=== PATIENT | male | born 1995 | race Caucasian/White ===

== ENCOUNTER 2016-09-06 18:08 | Emergency (ER) | payer BC, OTHER ==
[~2016-09-06] VITALS: Ht 167.6 cm; Wt 82.2 kg
[2016-09-06 18:12] VITALS: BP 155/90; PULSE 90; TEMP 37.2; O2SAT 99; Ht 167.6 cm; Wt 82.2 kg
[2016-09-06] MEDS ORDERED: PROPARACAINE HCL 0.5% OP SOLN 15 ML BTL OP STA (18:44)
[2016-09-06] MEDS ORDERED: CLR10 PO (18:50)
[2016-09-06] MEDS ORDERED: DOXY100C76 PO (18:50)
[2016-09-06] MEDS ORDERED: CIPROFLOXACIN HCL 0.3% OP SOLN 2.5 ML BTL OP ONE (19:00)
--- NOTE | 2016-09-10 06:59 | EMERGENCY ROOM VISIT NOTE ---
ED Visit Note First contact with patient: 18:39 Chief Complaint: Right eye swelling. History of Present Illness: Mr. Rock is a 21-year-old white male who ambulates into the ED complaining of right eye swelling and redness. Patient reports approximately 30 minutes ago he developed an itchy eye. He reports for about 20 minutes he was rubbing his eye and he noted watering. He went to the bathroom to look at his eye and noticed that it was swollen and the sclera was red. Associated with these symptoms he reports he has a mild stinging in the eye and rates his discomfort 3/10. His pain is nonradiating. He has not identified any aggravating or alleviating factors related to the symptoms. He has not taken any medications for his symptoms prior to arrival at the hospital. He denies any associated symptoms including recent eye trauma , previous significant eye diseases, contact use, light sensitivity, visual changes, floaters, drawing curtains, flashing lights, light sensitivity. Review of Systems: As noted above in history of present illness. Past Medical History: Acne, unspecified stomach disorder, seasonal allergies. Current Medications: Claritin, Monodox. Allergies to Medications: Penicillin. Social History: Patient is currently employed; he feels safe in his home environment; he denies tobacco use; he admits to alcohol use. Physical Examination: Vital Signs: Date Time Temp Pulse Resp B/P Pulse Ox O2 Delivery O2 Flow Rate FiO2 09/06/16 18:12 37.2 90 18 155/90 99 Room Air GENERAL: 21-year-old male in mild distress due to symptoms, nontoxic-appearing, afebrile and hemodynamically stable. NEUROLOGICAL: Awake, alert and oriented to person, place and time. Answering questions appropriately and following commands. SKIN: Warm, dry and pink. HEENT: Atraumatic and normocephalic. Mild erythema and edema around the right orbit with prominence over the upper eyelid. There is no warmth to this area. The skin does not appear cellulitic. No foreign bodies noted under the eyelids are embedded in the cornea. The anterior chamber was clear. PERRLA. EOMI. Sclera injected and conjunctiva swelling; chemosis. On funduscopic examination and staining patient has small punctate lesions on the outer border of the sclera in the 6 to 8 o'clock position. Mild tearing from the eyes was noted. No purulent drainage. Visual acuity: Right 20/25 with corrective lenses, Left 20/15 with corrective lenses. No drainage from naris. ED Course: Patient is assessed as noted above. Alcaine was used to anesthetize the eyes for examination. 2 drops of Ciloxan ophthalmic solution was placed in the right eye. Patient was educated about tonight's findings and instructed on his treatment plan; he verbalized understanding and agreement with this plan. Clinical Impression: Right corneal abrasion. Right chemosis. Disposition: Patient discharged home in stable condition; prior to departure he was reassessed and subjectively reported he was pain-free. Plan: Patient was prescribed Ciloxan ophthalmic solution for his right eye and instructed on achieves. Patient is encouraged to use [id number] antihistamine drops for the right eye and follow packaging instructions for dosing. Patient was encouraged to alternate ibuprofen and acetaminophen as needed for pain. Patient was encouraged to use ice over the external portion of the eye for swelling. Patient was encouraged to return to the ED for recheck in 36-48 hours. Patient was encouraged return the ED sooner for worsening/uncontrolled swelling , visual changes, fevers, headaches, vomiting or any new/concerning symptoms.
== END 2016-09-06 19:15 | disposition home or self-care (01) ==
LOC: C.EDB 18:09 → C.EDD 19:15
DX: S05.01XA Injury of conjunctiva and corneal abrasion without foreign body, right eye, initial encounter (principal); X58.XXXA Exposure to other specified factors, initial encounter; Z79.899 Other long term (current) drug therapy